=== PATIENT | male | born 1960 | race Caucasian/White ===

== ENCOUNTER 2017-08-15 02:04 | Emergency (ER) | payer OTHER ==
[~2017-08-15] VITALS: Ht 182.9 cm; Wt 72.6 kg
[~2017-08-15 02:04] MED LIST: APAP/CODEINE ELI5 M1 OR; ATIVAN1 MG PO; BACTRIM DS TAB1 EACH PO; BENADRYL25 MG PO; CALCIUM ACETAT667 M2 PO; CARVEDILOL12.5 MG PO; CLEOCIN HCL150 MG PO; COREG; COREG25 MG PO; DOXYCYCLINE 10100 MG PO; ERYTHROMYCIN E3.5 G1 OPHTHALMIC; FLEXERIL PO; FUROSEMIDE; FUROSEMIDE 80 M80 M1 PO; KEFLEX500 M1 PO; KEFLEX500 MG PO; LORTAB 5 MG/5001 TA1 PO; MEDROLDOSEPACK PO; MINOXIDIL2.5 MG PO; MUCINEX600 MG PO; NIACINAMIDE500 M1 PO; NORCO 5-325 TA1 EACH PO; NORFLEX100 MG PO; PERCOCET 5-3251 EACH PO; PHOSLO667 MG; RENA-VITE RX T1 EACH PO; RENAL SOFTGEL1 MG; RENAL SOFTGEL1 MG PO; SENSIPAR60 MG; SENSIPAR60 MG PO; ULTRAM 50MG TAB50 MG PO; VENTOLIN HFA 1818 GM INH; WELLBUTRIN SR150 MG PO; XANAX2 MG; ZOFRAN ODT4 MG PO; ZPAK PO; [UNRECOGNIZED DRUG - OTHER]
[2017-08-15] MEDS ORDERED: SENSIPAR 30 MG30 MG PO (02:27)
[2017-08-15] MEDS ORDERED: RENA-VITE RX T1 EACH PO (02:27)
[2017-08-15] MEDS ORDERED: CARVEDILOL3.125 MG PO (02:28)
[2017-08-15 03:00] LABS: BASOPHILS 0.9 % (0.0-2.0); EOSINOPHILS 2.3 % (0.0-3.0); HEMATOCRIT 44.3 % (42.0-52.0); HEMOGLOBIN 15.1 gm/dL (14.0-18.0); LYMPHOCYTES 10.8 % (24.0-44.0); MCH 32.2 pg (26.0-34.0); MCHC 34.2 g/dL (28.0-37.0); MCV 94.3 fL (80.0-100.0); MONOCYTES 11.9 % (1.0-8.0); PLATELET COUNT 274 thou/uL (150-400); POLYS 74.1 % (36.0-66.0); RBC 4.69 mil/uL (4.50-6.00); RDW 14.7 % (10.5-14.5); WBC 12.2 thou/uL (4.0-11.0)
[2017-08-15 03:01] LABS: MANUAL DIFF NO
[2017-08-15 03:08] LABS: CALCIUM 8.1 mg/dL (8.5-10.1); CREATININE 10.2 mg/dL (0.7-1.3); POTASSIUM 5.5 mmol/L (3.5-5.1)
[2017-08-15] MEDS ORDERED: CLEOCIN HCL150 MG PO (04:07)
[2017-08-15] MEDS ORDERED: ZOFRAN4 MG PO (04:07)
[2017-08-15 04:34] VITALS: BP 152/62
== END 2017-08-15 04:39 | disposition home or self-care (01) ==
LOC: ER 02:04
PROVIDERS: Emergency Medicine
DX: L03.211 Cellulitis of face (principal); R11.2 Nausea with vomiting, unspecified; I10 Essential (primary) hypertension; Q61.3 Polycystic kidney, unspecified; I50.9 Heart failure, unspecified; Z87.891 Personal history of nicotine dependence; Z90.49 Acquired absence of other specified parts of digestive tract; Z99.2 Dependence on renal dialysis

== ENCOUNTER 2017-12-05 20:24 | Emergency (ER) | payer OTHER ==
[~2017-12-05] VITALS: Ht 182.9 cm; Wt 72.6 kg
--- NOTE | ~2017-12-05 | EKG ---
[place] [address] [facility] [place] [address] ELECTROCARDIOGRAM REPORT Name: REYNOLD MATAMOROS Room #: REG [facility] [id number] Admission: 12/05/17 Attend Phys: Discharge: Date of : 60 Report #: [id number] THIS REPORT FOR: //name// [facility] ED Test Date: 2017-12-05 Test Time: 20:40:36 Pat Name: REYNOLD MATAMOROS Department: Room: Gender: Member Of Congress: MZOOK : 1960 Requested By: Zane Jha Order Number: [id number] MD: Daryl Ty Measurements Intervals [place] Rate: 77 P: UT: QRS: -46 QRSD: 102 T: 59 QT: 410 QTc: 465 Interpretive Statements Sinus rhythm Left anterior fascicular block Compared to ECG 04/18/2015 14:25:18 Electronically Signed On 12-05-2017 21:42:15 CDT by Daryl Ty [email or web address] <ELECTRONICALLY SIGNED> By: Daryl Ty MD 12/05/172141 39 2040 Daryl Ty MD /MARY ANN
[~2017-12-05 20:24] MED LIST changes: +CARVEDILOL3.125 MG PO; +SENSIPAR 30 MG30 MG PO; +ZOFRAN4 MG PO
[2017-12-05 20:56] LABS: HEMATOCRIT 47.5 % (42.0-52.0); HEMOGLOBIN 15.7 gm/dL (14.0-18.0); MCH 32.5 pg (26.0-34.0); MCHC 33.1 g/dL (28.0-37.0); MCV 98.3 fL (80.0-100.0); PLATELET COUNT 261 thou/uL (150-400); RBC 4.83 mil/uL (4.50-6.00); WBC 6.8 thou/uL (4.0-11.0)
[2017-12-05 21:04] LABS: ANION GAP 12 mmol/L (7-16); BUN 28 mg/dL (7-18); CALCIUM 9.1 mg/dL (8.5-10.1); CHLORIDE 99 mmol/L (98-107); CO2 27 mmol/L (21-32); CREATININE 9.7 mg/dL (0.7-1.3); GLUCOSE 135 mg/dL (74-106); POTASSIUM 3.9 mmol/L (3.5-5.1); SODIUM 138 mmol/L (136-145)
[2017-12-05] MEDS ORDERED: BINDER (21:04)
[2017-12-05] MEDS ORDERED: ATIVAN1 M1 PO (21:04)
[2017-12-05 21:13] LABS: TROPONIN-I < 0.04 ng/mL (<0.06)
[2017-12-05 21:24] LABS: ABSOLUTE NEUTROPHILS 4.6 thou/uL (1.4-8.2); ANISOCYTOSIS 1+
[2017-12-05] MEDS ORDERED: HYDROCODONE-AP1 EAC6 PO (21:56)
[2017-12-05 22:13] VITALS: BP 132/83
== END 2017-12-05 22:13 | disposition home or self-care (01) ==
LOC: ER 20:24
PROVIDERS: Physician Assistant
DX: M25.532 Pain in left wrist (principal); M54.12 Radiculopathy, cervical region; W19.XXXA Unspecified fall, initial encounter; Y93.89 Activity, other specified; Y92.89 Other specified places as the place of occurrence of the external cause; Y99.8 Other external cause status

== ENCOUNTER 2018-05-30 16:28 | Emergency (ER) | payer OTHER ==
[~2018-05-30] VITALS: Ht 182.9 cm; Wt 72.6 kg
[~2018-05-30 16:28] MED LIST changes: +ATIVAN1 M1 PO; +BINDER; +HYDROCODONE-AP1 EAC6 PO
[2018-05-30 16:32] VITALS: BP 117/78
== END 2018-05-30 17:10 | disposition home or self-care (01) ==
LOC: ER 16:28
DX: R05 Cough (principal); R09.81 Nasal congestion; I11.0 Hypertensive heart disease with heart failure; I50.9 Heart failure, unspecified; Z90.49 Acquired absence of other specified parts of digestive tract; Z87.891 Personal history of nicotine dependence

== ENCOUNTER 2018-12-11 15:50 | Emergency (ER) | payer OTHER ==
[~2018-12-11] VITALS: Ht 182.9 cm; Wt 72.6 kg
[2018-12-11] MEDS ORDERED: ATIVAN1 MG PO (16:04)
[2018-12-11] MEDS ORDERED: NORCO 5-325 TA1 EACH PO (18:06)
[2018-12-11 18:12] VITALS: BP 128/87
== END 2018-12-11 18:14 | disposition home or self-care (01) ==
LOC: ER 15:50
DX: S92.145A Nondisplaced dome fracture of left talus, initial encounter for closed fracture (principal); I50.9 Heart failure, unspecified; I11.0 Hypertensive heart disease with heart failure; Z90.49 Acquired absence of other specified parts of digestive tract; Z87.891 Personal history of nicotine dependence; W18.39XA Other fall on same level, initial encounter; Y92.89 Other specified places as the place of occurrence of the external cause; Y93.89 Activity, other specified; Y99.8 Other external cause status

== ENCOUNTER → 2019-01-02 | Outpatient (CLI) | payer OTHER | LOC: MRI 12:32 | DX: M62.572 Muscle wasting and atrophy, not elsewhere classified, left ankle and foot (principal) ==

== ENCOUNTER → 2020-10-23 | Outpatient (CLI) | payer OTHER | LOC: SJCVC 11:25 | PROVIDERS: ATTEND Internal Medicine | DX: I48.0 Paroxysmal atrial fibrillation (principal); I48.19 Other persistent atrial fibrillation; I12.9 Hypertensive chronic kidney disease with stage 1 through stage 4 chronic kidney disease, or unspecified chronic kidney disease; N18.9 Chronic kidney disease, unspecified; I34.0 Nonrheumatic mitral (valve) insufficiency; I42.9 Cardiomyopathy, unspecified; F17.210 Nicotine dependence, cigarettes, uncomplicated; Z79.899 Other long term (current) drug therapy ==

== ENCOUNTER → 2021-01-21 | Outpatient (CLI) | payer OTHER | LOC: SJCVCIMAG 07:49 | PROVIDERS: ATTEND Internal Medicine | DX: R06.00 Dyspnea, unspecified (principal); R53.83 Other fatigue; I10 Essential (primary) hypertension; I48.91 Unspecified atrial fibrillation; I25.5 Ischemic cardiomyopathy; Z99.2 Dependence on renal dialysis; Z87.891 Personal history of nicotine dependence; Z79.899 Other long term (current) drug therapy ==

== ENCOUNTER → 2021-01-25 | Outpatient (CLI) | payer OTHER | LOC: SJCVC 10:30 | PROVIDERS: ATTEND Internal Medicine | DX: I42.0 Dilated cardiomyopathy (principal); I12.0 Hypertensive chronic kidney disease with stage 5 chronic kidney disease or end stage renal disease; N18.6 End stage renal disease; E78.5 Hyperlipidemia, unspecified; E21.3 Hyperparathyroidism, unspecified; F41.9 Anxiety disorder, unspecified; D64.9 Anemia, unspecified; I95.9 Hypotension, unspecified; K40.90 Unilateral inguinal hernia, without obstruction or gangrene, not specified as recurrent; K42.9 Umbilical hernia without obstruction or gangrene; R94.31 Abnormal electrocardiogram [ECG] [EKG]; I34.0 Nonrheumatic mitral (valve) insufficiency; F12.90 Cannabis use, unspecified, uncomplicated; Q61.3 Polycystic kidney, unspecified; Z99.2 Dependence on renal dialysis; Z79.899 Other long term (current) drug therapy; Z87.891 Personal history of nicotine dependence ==

== ENCOUNTER → 2021-02-23 | Outpatient (CLI) | payer OTHER ==
[~2021-02-23] VITALS: Ht 182.9 cm; Wt 74.8 kg
[~2021-02-23] MED LIST changes: +AMIODARONE HCL400 MG PO
[2021-02-23 07:07] VITALS: BP 136/84
[2021-02-23 07:30] LABS: HEMATOCRIT 43.5 % (42.0-52.0); HEMOGLOBIN 14.2 gm/dL (14.0-18.0); MCH 32.8 pg (26.0-34.0); MCHC 32.8 g/dL (28.0-37.0); MCV 100.2 fL (80.0-100.0); RBC 4.34 mil/uL (4.50-6.00); RDW 18.7 % (10.5-14.5)
[2021-02-23 08:03] LABS: CALCIUM 9.1 mg/dL (8.5-10.1); CREATININE 6.4 mg/dL (0.7-1.3); POTASSIUM 4.3 mmol/L (3.5-5.1)
--- NOTE | 2021-02-23 08:57 | EKG ---
[place] [address] [facility] [place] [address] ELECTROCARDIOGRAM REPORT Name: REYNOLD MATAMOROSO [facility]: [facility] [id number] Admission: 02/23/21 Attend Phys: Gary Kimbrough MD, Discharge: Date of : 60 Report #: [id number] [facility] Test Date: 2021-02-23 Test Time: 07:22:19 Pat Name: REYNOLD MATAMOROS Department: Room: Gender: M Human Resources Trainee: SBULDYLON : 1960 Requested By: Dar Tomas Order Number: [id number] : Gary Kimbrough Measurements Intervals [place] Rate: 75 P: 53 [place]: 187 QRS: -67 QRSD: 131 T: 84 QT: 487 QTc: 544 Interpretive Statements Sinus rhythm Probable left atrial enlargement IVCD, consider atypical RBBB Left ventricular hypertrophy Anterior infarct, old Nonspecific T abnormalities, lateral leads Minimal ST elevation, lateral leads Compared to ECG 12/05/2017 20:40:36 Left ventricular hypertrophy now present Myocardial infarct finding now present T-wave abnormality now present Electronically Signed On 02-23-2021 8:57:35 CDT by Gary Kimbrough [email or web address] <ELECTRONICALLY SIGNED> By: Gary Kimbrough MD, [facility] 02/23/21 0857 1 1 Gary Kimbrough MD, [facility] /EPI
--- NOTE | 2021-02-25 17:04 | CATHLAB ---
[facility] [place] [address] INVASIVE PROCEDURE REPORT Name: REYNOLD MATAMOROS Room #: REG DYAN Morrow.#: [id number] Admission: 02/23/21 Attend Phys: Gary Kimbrough MD, Discharge: Date of : 60 Report #: [id number] THIS REPORT FOR: cc: Dar Paz MD, Gerald M. MD Mancuso, Gerald M. MD [facility] ~ APPROVED REPORT Study performed: 02/23/2021 07:43:05 Patient Details Patient Status: Out-Patient Room #: The patient is a 60 year-old male Event Personnel Dar Tomas Transplant Rn, Delbert Bermudez RTR Scrub, Sirena Nunez RTR Scrub, Rebel Domingo RTR Monitor, Aleah Ortega RN hand i cutter Performed Art Access - R femoral artery* Madi Access - R femoral vein Right and Left Heart Cath w/or w/o Coronarie 2564005 [facility] Abdominal Aortography 331939 Hemostasis w/ Mynx 31135 Initial Mod Sed Same Phys/QHP Gr5y 766880 33608 Mod Sed Same Phys/QHP Ea 560452 Indication Chest pain Procedure Narrative The Right Groin^ was infiltrated with 1% Lidocaine subcutaneous anesthesia. A Right Heart Catheterization was performed with a 7 Fr. [place]i catheter and pressure were recorded. Cardiac outputs were obtained by the Thermal Dilution method. A PINNACLE 6FR Sheath #[id number] sheath was inserted into the RFA^. Coronary angiography was performed using coronary diagnostic catheters. The right coronary system was accessed and visualized with a JR4 catheter. The left coronary system was accessed and visualized with a JL4 catheter. The left ventricle was accessed and visualized with a PIGTAIL catheter. An aortogram of the abdominal aorta was performed. Closure device was deployed with a Fr MYNXGRIP 6/7F #[id number]. The patient tolerated the procedure well and there were no complications associated with the procedure. There was no hematoma. [address] [address] INVASIVE PROCEDURE REPORT Name: REYNOLD MATAMOROSO Room #: REG [facility]#: [id number] Admission: 02/23/21 Attend Phys: Gary Kimbrough, Discharge: Date of : 60 Report #: [id number] Intraoperative Conscious Sedation Sedation start time: 8:37 Case end Time: 9:25 Fentanyl 50 mcg Versed 1 mg Fluoro Time: 3.00 minutes Dose: DAP 4840.70 cGycm2 529 mGy Contrast Type and Amount: Omnipaque 45 ml Hemodynamics The right atrial mean pressure is 24 mmHg. The right ventricular pressure is 54/11 mmHg. The pulmonary artery pressure is 53/12 mmHg with a mean of 32 mmHg. The mean pulmonary capillary wedge pressure is 28 mmHg. The aortic pressure is 142/90 mmHg with a mean of 111 mmHg. The left ventricular pressure is 144/19 mmHg with a mean of mmHg. The left ventricular end diastolic pressure is 31 mmHg. The cardiac output using thermo method is 4.10 L/min. The cardiac index using thermo method is 2.09 L/min/m2. Conclusion #1 Successful right heart catheterization with cardiac output by thermodilution. See above hemodynamics. #2 mildly dilated left ventricle with moderately severe global hypokinesis EF 20% range. #3 mild three-vessel coronary disease and a left dominant system. Proximal calcification is mild. No occlusive disease. #4 abdominal aortogram is intact no evidence of aneurysm brisk distal flow. Recommendations and plan: Continue aggressive risk factor modification. This is a mildly dilated idiopathic cardiomyopathy. This is nonischemic. Follow-up will be arranged. <ELECTRONICALLY SIGNED> By: Dar Tomas MD, FACC 02/25/21 1704 1704 170 Dar Tomas MD, FACC /INF
== END | disposition home or self-care (01) ==
LOC: CATH 02-09 07:24
PROVIDERS: Internal Medicine Cardiovascular Disease; ATTEND Internal Medicine
DX: I25.10 Atherosclerotic heart disease of native coronary artery without angina pectoris (principal); I11.0 Hypertensive heart disease with heart failure; I50.9 Heart failure, unspecified; E78.5 Hyperlipidemia, unspecified; I48.91 Unspecified atrial fibrillation; Z90.49 Acquired absence of other specified parts of digestive tract; Z98.890 Other specified postprocedural states; Z79.899 Other long term (current) drug therapy

== ENCOUNTER 2021-03-22 19:40 | Emergency (ER) | payer OTHER ==
[~2021-03-22] VITALS: Ht 182.9 cm; Wt 72.6 kg
[2021-03-22] MEDS ORDERED: AMIODARONE HCL400 MG PO (19:59)
[2021-03-22] MEDS ORDERED: ALBUTEROL2.5 MG/31 INH (19:59)
[2021-03-22] MEDS ORDERED: CARVEDILOL12.5 MG PO (20:00)
[2021-03-22] MEDS ORDERED: HECTOROL4 MCG/2 ML IV PUSH (20:01)
[2021-03-22] MEDS ORDERED: CINACALCET HCL30 MG PO (20:01)
[2021-03-22] MEDS ORDERED: SUPER THERAVIT1 EACH PO (20:01)
[2021-03-22] MEDS ORDERED: EFFIENT5 MG PO (20:02)
[2021-03-22] MEDS ORDERED: RENVELA0.8 GM PO (20:02)
[2021-03-22] MEDS ORDERED: DOXYCYCLINE 10100 MG PO (20:43)
[2021-03-22 20:53] VITALS: BP 114/67
== END 2021-03-22 21:06 | disposition home or self-care (01) ==
LOC: ER 19:40
DX: S10.0XXA Contusion of throat, initial encounter (principal); L08.9 Local infection of the skin and subcutaneous tissue, unspecified; I11.0 Hypertensive heart disease with heart failure; I50.9 Heart failure, unspecified; I10 Essential (primary) hypertension; Z99.2 Dependence on renal dialysis; Z90.49 Acquired absence of other specified parts of digestive tract; Z79.51 Long term (current) use of inhaled steroids; Z79.899 Other long term (current) drug therapy; Z87.891 Personal history of nicotine dependence; V86.96XA Unspecified occupant of dirt bike or motor/cross bike injured in nontraffic accident, initial encounter; Y93.89 Activity, other specified; Y92.89 Other specified places as the place of occurrence of the external cause; Y99.8 Other external cause status

== ENCOUNTER 2021-06-18 14:59 | Emergency (ER) | payer OTHER ==
[~2021-06-18] VITALS: Ht 182.9 cm; Wt 70.3 kg
[~2021-06-18 14:59] MED LIST changes: +ALBUTEROL2.5 MG/31 INH; +CINACALCET HCL30 MG PO; +EFFIENT5 MG PO; +HECTOROL4 MCG/2 ML IV PUSH; +RENVELA0.8 GM PO; +SUPER THERAVIT1 EACH PO
[2021-06-18 15:04] VITALS: BP 149/88
== END 2021-06-18 16:44 | disposition home or self-care (01) ==
LOC: ER 14:59
DX: M79.651 Pain in right thigh (principal); I11.0 Hypertensive heart disease with heart failure; I50.9 Heart failure, unspecified; Q61.3 Polycystic kidney, unspecified; I48.91 Unspecified atrial fibrillation; Z90.49 Acquired absence of other specified parts of digestive tract; Z79.51 Long term (current) use of inhaled steroids; Z79.891 Long term (current) use of opiate analgesic; Z79.899 Other long term (current) drug therapy; Z87.891 Personal history of nicotine dependence

== ENCOUNTER → 2021-07-12 | Outpatient (CLI) | payer OTHER | LOC: SJCVC 10:24 | PROVIDERS: ATTEND Internal Medicine | DX: I12.0 Hypertensive chronic kidney disease with stage 5 chronic kidney disease or end stage renal disease (principal); N18.6 End stage renal disease; I42.9 Cardiomyopathy, unspecified; E78.5 Hyperlipidemia, unspecified; E21.3 Hyperparathyroidism, unspecified; F12.980 Cannabis use, unspecified with anxiety disorder; Z79.899 Other long term (current) drug therapy; Z72.89 Other problems related to lifestyle; Z87.891 Personal history of nicotine dependence ==

== ENCOUNTER 2021-07-30 10:44 | Emergency (ER) | payer OTHER ==
[~2021-07-30] VITALS: Ht 182.9 cm; Wt 68.0 kg
[2021-07-30 10:55] VITALS: BP 126/70
== END 2021-07-30 11:35 | disposition left against medical advice (07) ==
LOC: ER 10:44
DX: R10.31 Right lower quadrant pain (principal); I48.91 Unspecified atrial fibrillation; I13.2 Hypertensive heart and chronic kidney disease with heart failure and with stage 5 chronic kidney disease, or end stage renal disease; N18.6 End stage renal disease; I50.9 Heart failure, unspecified; Z53.21 Procedure and treatment not carried out due to patient leaving prior to being seen by health care provider; Z99.2 Dependence on renal dialysis

== ENCOUNTER 2021-07-30 13:10 | Emergency (ER) | payer OTHER ==
[2021-07-30 13:11] VITALS: BP 129/60
== END 2021-07-30 15:22 | disposition left against medical advice (07) ==
LOC: ER 13:10
DX: R10.30 Lower abdominal pain, unspecified (principal); I48.91 Unspecified atrial fibrillation; I13.2 Hypertensive heart and chronic kidney disease with heart failure and with stage 5 chronic kidney disease, or end stage renal disease; N18.6 End stage renal disease; I50.9 Heart failure, unspecified; Z53.21 Procedure and treatment not carried out due to patient leaving prior to being seen by health care provider; Z99.2 Dependence on renal dialysis; Z90.49 Acquired absence of other specified parts of digestive tract

== ENCOUNTER 2021-09-28 21:36 | Inpatient (IN) | payer OTHER ==
[~2021-09-28] VITALS: Ht 182.9 cm; Wt 62.3 kg
--- NOTE | ~2021-09-28 | EMS ---
[address] [address] EMS Patient Care Report Name: REYNOLD MATAMOROS Room #: PRE M.R.#: [id number] Admission: Attend Phys: Discharge: Date of : 60 Report #: [id number] THIS REPORT FOR: //name// Report Transmitted: 09/28/2021 21:37 EMS Care Summary [place], [place]/[facility] Incident [id number] @ 09/28/2021 20:47 Incident Location [address] [place] [address] Patient REYNOLD MATAMOROS Male, 61 Years 1960 Patient Address [address] [place] [address] Patient History Cardiac Arrythmia,Hypertension (HTN),Kidney/Renal Failure,Cardiac Condition - Other,Dialysis,Chronic Kidney Disease, Patient Allergies No known allergies, Patient Medications Lisinopril, Renvela, Prasugrel, Prednisone, Chief Complaint DIARRHEA Disposition Transported No Lights/[place] Dispatch Reason Sick Person Transported To [facility] Narrative UPON ARRIVAL PT SITING UPRIGHT ON TOILET CONSCIOUS AND ALERT. PT HAS BEEN HAVING DIARRHEA FOR A WEEK NOW WITH INCREASED WEAKNESS. PT ALSO HAS SOME BLOOD IN THE STOOL BUT JUST BRIGHT RED BLOOD ON PAPER, MOST LIKELY FROM HEMMOROID. PT [address] [address] EMS Patient Care Report Name: REYNOLD MATAMOROS Room #: PRE [place]#: [id number] Admission: Attend Phys: Discharge: Date of : 60 Report #: [id number] WAS GIVEN MEDS A COUPLE DAYS AGO FOR ABD PAIN AND DIARRHEA BUT HASN'T TAKEN ANY BECAUSE THEY DIDN'T SEEM APROPRIATE TO HIM. PT ASSISTED TO PATIO STEPS, PT STATES HE CAN'T WALK DOWN THE STEPS DUE TO WEAKNESS. PT CARRIED DOWN STEPS TO COT. PT TRANSPORTED TO [facility]. DURING TRANSPORT PT ASKS FOR O2 BECAUSE HIS BREATHING HAS BEEN HEAVY. WE ADVISE PT HIS SPO2 IS NORMAL ON ROOM AIR. PT ASKS AGAIN AND IS GIVEN O2. Initial Vitals @21:21P: 91,CO: 4,SpO2: 71, @21:28P: 152,CO: 1,SpO2: 96, @21:29P: 91,R: 20,BP: 102/68,GCS: 15,CO: 2,SpO2: 96,Revised Trauma: 12, @21:15P: 96,R: 20,BP: 130/74,Pain: 8/10,GCS: 15,SpO2: 92,Revised Trauma: 12, Assessments @21:02MENTAL:Time Oriented,Event Oriented,Place Oriented,Person Oriented,SKIN:Pale,HEENT:Head/Face: No Abnormalities,LUNG SOUNDS:Left Lower: Tenderness,Right Upper: Tenderness,Right Lower: Tenderness,General: Diarrhea,General: Nausea,Left Upper: No Abnormalities,ABDOMEN:Left Lower: Tenderness,Right Upper: Tenderness,Right Lower: Tenderness,General: Diarrhea,General: Nausea,Left Upper: No Abnormalities,PELVIS//GI:EXTREMITIES:Left Arm: No Abnormalities,Right Arm: No Abnormalities,Left Leg: No Abnormalities,Right Leg: No Abnormalities,PULSE:Radial: 2+ Normal,NEURO:No Abnormalities, Impression Diarrhea Procedures @21:02 ALS Assessment Response: UnchangedSucceeded @21:15 3-Lead ECG Response: UnchangedSucceeded @21:20 Oxygen FlowRate: 2 Device: Nasal Cannula (NC) Response: UnchangedSucceeded Timeline 20:44,Call Received 20:44,Dispatch Notified 20:47,Dispatched 20:48,En Route 20:58,On Scene 21:00,At Patient 21:02,ALS Assessment,Response: UnchangedSucceeded, 21:15,3-Lead ECG,Response: UnchangedSucceeded, 21:15,BP: 130/74 M,PULSE: 96,RR: 20 R,SPO2: 92 Ox,ETCO2: ,BG: ,PAIN: 8,GCS: 15, 21:17,Depart Scene 21:20,Oxygen FlowRate: 2 Device: Nasal Cannula (NC) Response: [facility] [address] [place] [address] EMS Patient Care Report Name: REYNOLD MATAMOROS Room #: PRE M.R.#: [id number] Admission: Attend Phys: Discharge: Date of : 60 Report #: [id number] UnchangedSucceeded, 21:21,BP: / M,PULSE: 91,RR: R,SPO2: 71 Ox,ETCO2: ,BG: ,PAIN: ,GCS: , 21:28,BP: / M,PULSE: 152,RR: R,SPO2: 96 Ox,ETCO2: ,BG: ,PAIN: ,GCS: , 21:29,BP: 102/68 M,PULSE: 91,RR: 20 R,SPO2: 96 Ox,ETCO2: ,BG: ,PAIN: ,GCS: 15, 21:36,At Destination 21:51,Call Closed Disclaimer v1.1 Copyright 2021 [employer] This EMS Care Summary contains data elements from the applicable legal record (which may be displayed differently). It is designed to provide pertinent information for the following purposes: continuity of care, clinical quality, and state data reporting. The complete legal record is available to ED staff and administrators of the receiving hospital in [employer]'s Patient Tracker. All data is provided "as is."
--- NOTE | ~2021-09-28 | EMS ---
[address] [address] EMS Patient Care Report Name: REYNOLD MATAMOROS Room #: 170-7 ADM IN M.R.#: [id number] Admission: 09/29/21 Attend Phys: Nilesh Ojeda Discharge: Date of : 60 Report #: [id number] THIS REPORT FOR: //name// Report Transmitted: 09/29/2021 06:15 EMS Care Summary [place], [place]/[facility] Incident [id number] @ 09/28/2021 20:47 Incident Location [address] [place] [address] Patient REYNOLD MATAMOROS Male, 61 Years 1960 Patient Address [address] [place] [address] Patient History Cardiac Arrythmia,Hypertension (HTN),Kidney/Renal Failure,Cardiac Condition - Other,Dialysis,Chronic Kidney Disease, Patient Allergies No known allergies, Patient Medications Lisinopril, Renvela, Prasugrel, Prednisone, Chief Complaint DIARRHEA Disposition Transported No Lights/[place] Dispatch Reason Sick Person Transported To [facility] Narrative UPON ARRIVAL PT SITING UPRIGHT ON TOILET CONSCIOUS AND ALERT. PT HAS BEEN HAVING DIARRHEA FOR A WEEK NOW WITH INCREASED WEAKNESS. PT ALSO HAS SOME BLOOD IN THE STOOL BUT JUST BRIGHT RED BLOOD ON PAPER, MOST LIKELY FROM HEMMOROID. PT [address] [address] EMS Patient Care Report Name: REYNOLD MATAMOROS Room #: 170-7 ADM IN M.R.#: [id number] Admission: 09/29/21 Attend Phys: Nilesh Ojeda Discharge: Date of : 60 Report #: [id number] WAS GIVEN MEDS A COUPLE DAYS AGO FOR ABD PAIN AND DIARRHEA BUT HASN'T TAKEN ANY BECAUSE THEY DIDN'T SEEM APROPRIATE TO HIM. PT ASSISTED TO PATIO STEPS, PT STATES HE CAN'T WALK DOWN THE STEPS DUE TO WEAKNESS. PT CARRIED DOWN STEPS TO COT. PT TRANSPORTED TO [facility]. DURING TRANSPORT PT ASKS FOR O2 BECAUSE HIS BREATHING HAS BEEN HEAVY. WE ADVISE PT HIS SPO2 IS NORMAL ON ROOM AIR. PT ASKS AGAIN AND IS GIVEN O2. Initial Vitals @21:21P: 91,CO: 4,SpO2: 71, @21:28P: 152,CO: 1,SpO2: 96, @21:29P: 91,R: 20,BP: 102/68,GCS: 15,CO: 2,SpO2: 96,Revised Trauma: 12, @21:15P: 96,R: 20,BP: 130/74,Pain: 8/10,GCS: 15,SpO2: 92,Revised Trauma: 12, Assessments @21:02MENTAL:Person Oriented,Place Oriented,Event Oriented,Time Oriented,SKIN:Pale,HEENT:Head/Face: No Abnormalities,LUNG SOUNDS:General: Nausea,Left Lower: Tenderness,Right Upper: Tenderness,Right Lower: Tenderness,General: Diarrhea,Left Upper: No Abnormalities,ABDOMEN:General: Nausea,Left Lower: Tenderness,Right Upper: Tenderness,Right Lower: Tenderness,General: Diarrhea,Left Upper: No Abnormalities,PELVIS//GI:EXTREMITIES:Left Arm: No Abnormalities,Right Arm: No Abnormalities,Left Leg: No Abnormalities,Right Leg: No Abnormalities,PULSE:Radial: 2+ Normal,NEURO:No Abnormalities, Impression Diarrhea Procedures @21:02 ALS Assessment Response: UnchangedSucceeded @21:15 3-Lead ECG Response: UnchangedSucceeded @21:20 Oxygen FlowRate: 2 Device: Nasal Cannula (NC) Response: UnchangedSucceeded Timeline 20:44,Call Received 20:44,Dispatch Notified 20:47,Dispatched 20:48,En Route 20:58,On Scene 21:00,At Patient 21:02,ALS Assessment,Response: UnchangedSucceeded, 21:15,3-Lead ECG,Response: UnchangedSucceeded, 21:15,BP: 130/74 M,PULSE: 96,RR: 20 R,SPO2: 92 Ox,ETCO2: ,BG: ,PAIN: 8,GCS: 15, 21:17,Depart Scene 21:20,Oxygen FlowRate: 2 Device: Nasal Cannula (NC) Response: [facility] [address] [place] [address] EMS Patient Care Report Name: REYNOLD MATAMOROS Room #: 170-7 ADM IN M.R.#: [id number] Admission: 09/29/21 Attend Phys: Nilesh Ojeda Discharge: Date of : 60 Report #: [id number] UnchangedSucceeded, 21:21,BP: / M,PULSE: 91,RR: R,SPO2: 71 Ox,ETCO2: ,BG: ,PAIN: ,GCS: , 21:28,BP: / M,PULSE: 152,RR: R,SPO2: 96 Ox,ETCO2: ,BG: ,PAIN: ,GCS: , 21:29,BP: 102/68 M,PULSE: 91,RR: 20 R,SPO2: 96 Ox,ETCO2: ,BG: ,PAIN: ,GCS: 15, 21:36,At Destination 21:51,Call Closed Disclaimer v1.1 Copyright 2021 [employer] This EMS Care Summary contains data elements from the applicable legal record (which may be displayed differently). It is designed to provide pertinent information for the following purposes: continuity of care, clinical quality, and state data reporting. The complete legal record is available to ED staff and administrators of the receiving hospital in [employer] Patient Tracker. All data is provided "as is."
[2021-09-28 21:47] VITALS: BP 102/62
[2021-09-28 22:26] LABS: MCH 30.7 pg (26.0-34.0); PLATELET COUNT 218 thou/uL (150-400)
[2021-09-28 22:28] LABS: EOSINOPHILS 0.2 % (0.0-3.0); HEMATOCRIT 43.3 % (42.0-52.0); HEMOGLOBIN 14.2 gm/dL (14.0-18.0); LYMPHOCYTES 2.7 % (24.0-44.0); MCHC 32.9 g/dL (28.0-37.0); MCV 93.2 fL (80.0-100.0); MONOCYTES 7.1 % (1.0-8.0); RBC 4.64 mil/uL (4.50-6.00); RDW 18.5 % (10.5-14.5); WBC 14.6 thou/uL (4.0-11.0)
[2021-09-28 22:33] LABS: ANION GAP 12 mmol/L (7-16); BUN 55 mg/dL (7-18); CALCIUM 8.7 mg/dL (8.5-10.1); CHLORIDE 97 mmol/L (98-107); CO2 27 mmol/L (21-32); CREATININE 5.9 mg/dL (0.7-1.3); GLUCOSE 61 mg/dL (74-106); POTASSIUM 4.9 mmol/L (3.5-5.1); SODIUM 136 mmol/L (136-145)
[2021-09-28 22:45] LABS: ALBUMIN 2.5 g/dL (3.4-5.0); LIPASE < 10 U/L (73-393); SGOT 15 U/L (15-37); SGPT 22 U/L (16-63); TOTAL BILIRUBIN 1.3 mg/dL (0.2-1.0)
[2021-09-29 04:00] VITALS: BP 100/59
[2021-09-29 05:33] LABS: HEMATOCRIT 38.4 % (42.0-52.0); HEMOGLOBIN 12.6 gm/dL (14.0-18.0); MCH 30.4 pg (26.0-34.0); MCHC 32.9 g/dL (28.0-37.0); MCV 92.4 fL (80.0-100.0); RBC 4.15 mil/uL (4.50-6.00); RDW 18.8 % (10.5-14.5); WBC 12.7 thou/uL (4.0-11.0)
[2021-09-29 05:44] LABS: CALCIUM 7.7 mg/dL (8.5-10.1); CREATININE 6.1 mg/dL (0.7-1.3); POTASSIUM 5.6 mmol/L (3.5-5.1)
--- NOTE | 2021-09-29 08:01 | EKG ---
[place] [address] [facility] [place] [address] ELECTROCARDIOGRAM REPORT Name: REYNOLD MATAMOROS Room #: 170-7 ADM IN M.R.#: [id number] Admission: 09/29/21 Attend Phys: Nilesh Ojeda Discharge: Date of : 60 Report #: [id number] [facility] ED Test Date: 2021-09-28 Test Time: 22:10:52 Pat Name: REYNOLD MATAMOROS Department: Room: 170 7 Gender: M Casino Controller: ADA : 1960 Requested By: Nilesh Ojeda Order Number: [id number] MD: Curtis Lange Measurements Intervals [place] Rate: 93 P: -11 [place]: 175 QRS: -70 QRSD: 117 T: 97 QT: 405 QTc: 504 Interpretive Statements Sinus rhythm Incomplete right bundle branch block Left anterior hemiblock Probable anterior infarct, age indeterminate LVH with repolarization abnormality Compared to ECG 02/23/2021 07:22:19 Incomplete right bundle-branch block now present Repolarization abnormality is more pronounced Electronically Signed On 09-29-2021 8:01:30 TEST ENGINEERING TECHNICIAN by Curtis Lange [email or web address] <ELECTRONICALLY SIGNED> By: Curtis Lange MD, [facility] 09/29/2101 221 09 Curtis Lange MD, [facility] /EPI
[2021-09-29 08:08] VITALS: BP 95/64
--- NOTE | 2021-09-29 08:18 | NUR ---
END OF SHIFT SUMMARY: PT REMAINED STABLE THROUGHOUT THE NIGHT WITH FEW COMPLAINTS OTHER THAN PAIN. PAIN MEDICATION WAS GIVEN ORDERED AND PT WAS ABLE TO SLEEP AND WAS SLEEPING ON ALL REASSESSMENTS OF PAIN. VITAL SIGNS REMAINED STABLE. PT WAS ASSISTED TO THE BED SIDE COMMODE WHERE HE PRESENTED VERY WEAK. PT ONLY REQUIRED ONE PERSON MINIMAL ASSISTANCE. PT DID HAVE DIARRHEA DURING THAT TIME, AND THAT WAS SENT TO LAB FOR C.DIFF RULE OUT. ALL ABX WERE GIVEN PRESCRIBED AND PT WAS NOTIFIED OF NPO STATUS UNTIL PROVIDER SAW PT. PT STATED UNDERSTANDING. PT ALSO EDUCATED ON PAIN MEDICATION TIMING BEING Q4HR. PT AGAIN STATED UNDERSTANDING. CALL LIGHT REMAINED IN REACH AT ALL TIMES AND PT WAS EDUCATED ON USE OF LIGHT EVERY TIME SOMEONE LEFT THE ROOM. PT WAS ABLE TO VOICE UNDERSTANDING.
[2021-09-29 15:26] VITALS: BP 95/64
[2021-09-29 20:09] VITALS: BP 97/41
--- NOTE | 2021-09-29 22:03 | NUR ---
WALKED IN TO GIVE PT MEDICATION, PT WAS SITTING ON THE SIDE OF THE BED WITH EVERYTHING RIPPED OFF. ASKED PT WHAT HE WAS DOING WHEN HE STATED, "I AM GETTING UP TO GET A CUP OF ICE." PT WAS ASKED WHY HE DID NOT PUSH HIS CALL LIGHT. HE STATED THAT CALL LIGHT DID NOT WORK, IT WAS AT THIS TIME THAT IT WAS NOTICED THAT PT HAD PULLED BIOMEDICAL PHOTOGRAPHER LIGHT SO HARD THAT IT HAD COME OUT OF THE WALL. PT STATED "YOU GUYS ARE JUST FUCKING WITH ME." PT REQUESTED A CUP OF ICE. THIS WAS PROVIDED TO PT. PAIN MEDICATION AND NAUSEA MEDS WERE ALSO ADMINISTERED. CALL LIGHT WAS PLUGGED BACK IN AND PLACED IN REACH. PT WAS THEN EDUCATED ON THE USE OF THE CALL LIGHT AND NOT PULLING ON THE CORD.
--- NOTE | 2021-09-29 22:22 | NUR ---
PT BRIEF CHANGED, PT REPOSTIONED IN BED, CALL LIGHT IN REACH, LIGHTS TURNED OFF PER PT REQUEST. PT DENIES ANY FURTHER NEEDS OR WANTS AT THIS TIME.
[2021-09-30] VITALS (34 sets, daily range): BP systolic 66–161; BP diastolic 37–123
[2021-09-30 06:08] LABS: HEMATOCRIT 47.6 % (42.0-52.0); MCH 29.9 pg (26.0-34.0); MCHC 31.7 g/dL (28.0-37.0); MCV 94.5 fL (80.0-100.0); RBC 5.04 mil/uL (4.50-6.00); RDW 19.2 % (10.5-14.5); WBC 22.4 thou/uL (4.0-11.0)
[2021-09-30 06:15] LABS: HEMOGLOBIN 15.1 gm/dL (14.0-18.0)
[2021-09-30 06:18] LABS: ALBUMIN 1.7 g/dL (3.4-5.0); CALCIUM 8.6 mg/dL (8.5-10.1); MAGNESIUM 2.1 mg/dL (1.8-2.4); PHOSPHORUS 6.4 mg/dL (2.6-4.7); POTASSIUM 5.6 mmol/L (3.5-5.1)
--- NOTE | 2021-09-30 07:05 | NUR ---
PT WAS NOTED TO HAVE A CRITIAL GLUCOSE OF 28. ANOTHER RN, MARY, ADMINISTERED MEDICATIONS. AFTER 20 MINUTES BLOOD SUGAR WAS RECHEKED AND SUGAR CORRECTED TO 105.
--- NOTE | 2021-09-30 15:46 | NUR ---
PAGED DR. SPARROW TWICE IN REGARDS TO PATIENTS' BP. STILL WAITING FOR RETURN CALL AT THIS TIME.
--- NOTE | 2021-09-30 18:36 | NUR ---
A RIGHT IJ CENTRAL LINE WAS PLACED PER HOSPITAL POLICY AFTER A BEDSIDE TIMEOUT WAS COMPLETED. THE 25CM LINE WAS ADVANCED TO 7CM EXTERNAL. A STAT CHEST XRAY WAS ORDERED FOR CONFIRMATION
--- NOTE | 2021-09-30 18:57 | NUR ---
PT ARRIVED TO ICU AT 1715 FOR HYPOTENSION. PT WAS QUICKLY STARTED ON LEVO FOR SUPPORT. PT RESPONDED WELL TO MEDICATION. RN WILL CONTINUE TO MONITOR
[2021-10-01] VITALS (48 sets, daily range): BP systolic 80–143; BP diastolic 41–108
[2021-10-01 00:05] LABS: BE(vivo) -7.7 mmol/L (-2 to +3); HCO3 18.5 mmol/L (22.0-26.0); PCO2 40.2 mmHg (35.0-45.0); PO2 82.3 mmHg (80.0-100.0); sO2 94.9 % (92.0-98.0)
[2021-10-01 00:06] LABS: pH 7.281 (7.360-7.450)
[2021-10-01 06:17] LABS: HEMATOCRIT 55.2 % (42.0-52.0); MCHC 31.3 g/dL (28.0-37.0); MCV 95.8 fL (80.0-100.0); RBC 5.76 mil/uL (4.50-6.00); RDW 19.6 % (10.5-14.5); WBC 29.9 thou/uL (4.0-11.0)
[2021-10-01 06:18] LABS: HEMOGLOBIN 17.3 gm/dL (14.0-18.0)
[2021-10-01 06:25] LABS: ALBUMIN 1.4 g/dL (3.4-5.0); CALCIUM 8.1 mg/dL (8.5-10.1); CREATININE 5.8 mg/dL (0.7-1.3); PHOSPHORUS 8.4 mg/dL (2.5-4.9)
[2021-10-01 06:31] LABS: POTASSIUM 6.4 mmol/L (3.5-5.1)
--- NOTE | 2021-10-01 09:00 | NUR ---
pt continues to c/o abd pain and keeps asking to be sat up. pt had critical Ph and potassium during shift. results were reported as charted. during change of shift the provider ordered stat abd CT for distended abd
--- NOTE | 2021-10-01 10:30 | NUR ---
Discussed during los with the attending physician. positive for c-diff, requiring o2 per nasal cannula and currently on NRB mask 15.0L. Levophed for pressure, b/p 90/51. Abnormal lab, BUN, Creat, and Potassium. Possible will be going for a procedure today. Cm called renea valera sig other. Unable to leave a message related the mailbox is full.
--- NOTE | 2021-10-01 11:48 | NUR ---
AT 0730, PATIENT WAS COMPLAINING ABOUT SEVERE AB PAIN, SOB, AND VERY RESTLESS. NEPHROLOGY ORDERED STAT CT AB/PELVIS AND 1 MG [address]IVAN AT [address]45. [address] DONE AT 0800. UPON ARRIVAL BACK TO ICU DR. SPARROW ELECTIVELY INTUBATED AT BEDSIDE AT 0845 AND GAVE 50 MEQ BICARB. LEVO GTT INCREASED TO 0.5 MCG/KG/MIN AND VASO STARTED AT 0.04. ONE LITER BOLUS OF NS GIVEN AT 0930. D50 AND 10 UNITS OF REGULAR INSULIN GIVEN. GENERAL SURGERY CONSULTED AND AT BEDSIDE. FAMILY CALLED AND CONSENT WAS GIVEN FOR OR (SEE OR REPORT). PATIENT TO OR AT 0945.
[2021-10-01 12:58] LABS: HEMATOCRIT 48.4 % (42.0-52.0); MCH 30.1 pg (26.0-34.0); MCHC 31.5 g/dL (28.0-37.0); MCV 95.5 fL (80.0-100.0); RBC 5.06 mil/uL (4.50-6.00); RDW 19.5 % (10.5-14.5)
[2021-10-01 13:04] LABS: HEMOGLOBIN 15.2 gm/dL (14.0-18.0)
[2021-10-01 13:15] LABS: BE(vivo) -9.4 mmol/L (-2 to +3); HCO3 21.9 mmol/L (22.0-26.0); PO2 99.7 mmHg (80.0-100.0); sO2 94.9 % (92.0-98.0)
[2021-10-01 13:16] LABS: pH 7.104 (7.360-7.450)
[2021-10-01 13:17] LABS: PCO2 71.4 mmHg (35.0-45.0)
[2021-10-01 13:23] LABS: INR 2.2; PROTIME 23.1 Seconds (10.5-12.1)
[2021-10-01 13:24] LABS: CALCIUM 7.6 mg/dL (8.5-10.1); CREATININE 5.3 mg/dL (0.7-1.3)
[2021-10-01 13:39] LABS: ALBUMIN 1.9 g/dL (3.4-5.0); TOTAL BILIRUBIN 1.1 mg/dL (0.2-1.0); TOTAL PROTEIN 4.8 g/dL (6.4-8.2)
[2021-10-01 13:44] LABS: POTASSIUM 5.4 mmol/L (3.5-5.1)
[2021-10-02] VITALS (63 sets, daily range): BP systolic 85–127; BP diastolic 58–74
[2021-10-02 03:56] LABS: BE(vivo) -1.4 mmol/L (-2 to +3); HCO3 25.3 mmol/L (22.0-26.0); PCO2 50.1 mmHg (35.0-45.0); sO2 94.8 % (92.0-98.0)
[2021-10-02 03:57] LABS: pH 7.322 (7.360-7.450)
[2021-10-02 04:55] LABS: HEMATOCRIT 44.3 % (42.0-52.0); HEMOGLOBIN 14.3 gm/dL (14.0-18.0); MCH 30.1 pg (26.0-34.0); MCHC 32.2 g/dL (28.0-37.0); MCV 93.5 fL (80.0-100.0); RBC 4.74 mil/uL (4.50-6.00); RDW 19.2 % (10.5-14.5); WBC 20.7 thou/uL (4.0-11.0)
[2021-10-02 05:24] LABS: INR 1.27; PROTIME 13.7 Seconds (10.5-12.1)
[2021-10-02 05:43] LABS: CALCIUM 8.5 mg/dL (8.5-10.1); POTASSIUM 4.9 mmol/L (3.5-5.1); TOTAL BILIRUBIN 1.3 mg/dL (0.2-1.0); TOTAL PROTEIN 4.6 g/dL (6.4-8.2)
[2021-10-02 05:44] LABS: CREATININE 3.6 mg/dL (0.7-1.3)
--- NOTE | 2021-10-02 08:22 | NUR ---
1999- NOTIFIED DR. HURT ABOUT PTS POOR PERFUSION, BP SUPPORT, BM ON DAY SHIFT, ILEOSTOMY, AND SIMONE OUTPUT. 399- NOTIFIED SLIPPER MAKER TIFFANY THAT PTS LOWER EXTRIMITY PERFUSION WAS POOR WHEN COMING ONTO SHIFT AND GETTING WORSE THROUGHOUT SHIFT. 0700- UPDATED BLU ABOUT PTS NIGHT. HE IS OKAY WITH SIMONE AND ILEOSTOMY OUTPUTS. ALSO UPDATED HIM ON PTS VERY POOR PERIPHERAL VASCULATURE. UPDATED HIM ON PTS LABS.
--- NOTE | 2021-10-02 11:17 | NUR ---
HANNAH AT BEDSIDE PHONE # [phone]
--- NOTE | 2021-10-02 16:08 | NUR ---
SPOKE WITH NICOLÁS (SIGNIFICANT OTHER) AND UPDATED HER.
--- NOTE | 2021-10-02 17:17 | NUR ---
PT PROGRESSING TOWARD PLAN OF CARE AEB DECREASE IN OXYGEN REQUIREMENT AND DECREASE IN LEVOPHED REQUIREMENT
[2021-10-03] VITALS (48 sets, daily range): BP systolic 78–122; BP diastolic 56–72
[2021-10-03 05:26] LABS: INR 1.06; PROTIME 11.5 Seconds (10.5-12.1)
[2021-10-03 05:30] LABS: HEMATOCRIT 41.5 % (42.0-52.0); HEMOGLOBIN 13.3 gm/dL (14.0-18.0); MCH 30.1 pg (26.0-34.0); MCHC 32.1 g/dL (28.0-37.0); MCV 93.9 fL (80.0-100.0); PLATELET COUNT 48 thou/uL (150-400); RBC 4.42 mil/uL (4.50-6.00); RDW 18.8 % (10.5-14.5); WBC 14.2 thou/uL (4.0-11.0)
[2021-10-03 05:35] LABS: BE(vivo) -3.8 mmol/L (-2 to +3); PCO2 48.7 mmHg (35.0-45.0)
[2021-10-03 05:36] LABS: PO2 46.1 mmHg (80.0-100.0); pH 7.293 (7.360-7.450)
[2021-10-03 05:49] LABS: MAGNESIUM 2.3 mg/dL (1.8-2.4); PHOSPHORUS 7.6 mg/dL (2.5-4.9)
--- NOTE | 2021-10-03 06:00 | NUR ---
SPOKE WITH DR. RICHTER D/T CRITICAL ABG VALUE. ORDERS GIVEN AND ADMINISTERED.
[2021-10-03 06:06] LABS: ALBUMIN 1.9 g/dL (3.4-5.0); CALCIUM 9.3 mg/dL (8.5-10.1); CREATININE 4.4 mg/dL (0.7-1.3); POTASSIUM 5.3 mmol/L (3.5-5.1); TOTAL BILIRUBIN 1.1 mg/dL (0.2-1.0); TOTAL PROTEIN 4.5 g/dL (6.4-8.2)
[2021-10-03 09:14] LABS: ABSOLUTE NEUTROPHILS 13.5 thou/uL (1.4-8.2); METAMYELOCYTES 1 %
[2021-10-03 09:15] LABS: ANISOCYTOSIS 2+; OVALOCYTES FEW
--- NOTE | 2021-10-03 17:57 | NUR ---
PT PROGRESSING TOWARD POC AEB DECREASED IN VASOACTIVE MEDICATIONS AND DECREASE IN OXYGEN REQUIREMENT
[2021-10-04] VITALS (23 sets, daily range): BP systolic 85–115; BP diastolic 60–79
[2021-10-04 05:09] LABS: BE(vivo) -7.4 mmol/L (-2 to +3); HCO3 18.4 mmol/L (22.0-26.0); PCO2 38.2 mmHg (35.0-45.0); PO2 110.7 mmHg (80.0-100.0); sO2 97.6 % (92.0-98.0)
[2021-10-04 05:42] LABS: HEMATOCRIT 44.2 % (42.0-52.0); HEMOGLOBIN 14.1 gm/dL (14.0-18.0); MCH 30.1 pg (26.0-34.0); RBC 4.7 mil/uL (4.50-6.00); RDW 19.1 % (10.5-14.5)
[2021-10-04 06:15] LABS: ALBUMIN 1.8 g/dL (3.4-5.0); CALCIUM 9.9 mg/dL (8.5-10.1); CREATININE 5.3 mg/dL (0.7-1.3); MAGNESIUM 2.6 mg/dL (1.8-2.4); PHOSPHORUS 7.8 mg/dL (2.6-4.7); POTASSIUM 5.7 mmol/L (3.5-5.1)
--- NOTE | 2021-10-04 09:21 | NUR ---
Nutrition: Consider concentrate TPN and add lipids (due to minimal propofol) REC 17% dextrose, 7% aa, 2.9% lipids at 60 mL/hr (renal desired goal rate).
--- NOTE | 2021-10-04 11:00 | NUR ---
Discussed during los with the attending physician and during unit rounds. Remains on the vent, 50% FIO2, peep 8. Had a colectomy. The patient is receiving dialysis today. Cm called his significate other moraima, no answer and unable to leave a message related to the mailbox is full. Will cont following as needed.
[2021-10-04 11:02] LABS: HEMATOCRIT 44.4 % (42.0-52.0); HEMOGLOBIN 14.3 gm/dL (14.0-18.0); MCHC 32.3 g/dL (28.0-37.0); MCV 92.8 fL (80.0-100.0); RBC 4.78 mil/uL (4.50-6.00); RDW 19.4 % (10.5-14.5); WBC 16.2 thou/uL (4.0-11.0)
--- NOTE | 2021-10-04 12:23 | EKG ---
[place] [address] [facility] [place] [address] ELECTROCARDIOGRAM REPORT Name: BRICEKLEVERREYNOLDTIMOTEO GRECO Room #: 236-P ADM IN M.R.#: [id number] Admission: 09/29/21 Attend Phys: Nilesh Ojeda Discharge: Date of : 60 Report #: [id number] [facility] Test Date: 2021-10-04 Test Time: 11:23:52 Pat Name: REYNOLD MATAMOROS Department: Room: 236 P Gender: M Home Theater Specialist: JEFFREY : 1960 Requested By: Monica Cain Order Number: [id number] MD: Stu Del Castillo Measurements Intervals [place] Rate: 68 P: 53 [place]: 178 QRS: -75 QRSD: 134 T: 78 QT: 474 QTc: 505 Interpretive Statements Sinus rhythm Nonspecific IVCD with LAD vs Left ventricular hypertrophy Poor R wave progression Compared to ECG 09/28/2021 22:10:52 Left anterior fascicular block no longer present Electronically Signed On 10-04-2021 12:23:05 MECHANICAL ENGINEER by Stu Del Castillo [email or web address] <ELECTRONICALLY SIGNED> By: Stu Del Castillo MD 10/04/21 1223 22 [facility] Stu Del Castillo MD /EPI
[2021-10-04 16:55] LABS: ALBUMIN 1.9 g/dL (3.4-5.0); TOTAL BILIRUBIN 1.8 mg/dL (0.2-1.0); TOTAL PROTEIN 4.5 g/dL (6.4-8.2)
[2021-10-04 17:01] LABS: CREATININE 2.9 mg/dL (0.7-1.3); POTASSIUM 3.8 mmol/L (3.5-5.1)
--- NOTE | 2021-10-04 17:08 | NUR ---
PT IS PROGRESSING TOWARD THE POC EVIDENCED BY DECREASING 02 DEMAND. HE FOLLOWS COMMANDS OPENS HIS EYES TO VERBAL COMMAND AND ON MINIMAL SEDATION FOR VENT MANAGEMENT. THE ABG RESULTS IS METABOLIC ACIDOSIS (PH 7.300) EVIDENCED BY HCO3- 18, THE PT DOES NOT MEED CRITERIA TO HAVE A CPAP TRIAL TODAY. THE PT ORGANS ARE PERFUSING AND BEING OXYGENATED ADEQUATELY VIA THE VENTILATOR AND VASOPRESSIN. HE HAS POOR CIRCULATION SEEN THROUGH MOTTLING IN THE FEET/TOES. HIS EXTREMITIES ARE COOL. LAB RESULTS OF A TROPONIN 1249 AND CARDIOLOGY IS NOTIFIED. NO ORDERS RECEIVED FOR THE TROPONIN RESULT. AN EKG IS COMPLETE THIS AM REPORTING NO ISCHEMIA WITH NO DR ORDERS RECEIVED. PT DID WELL ON HD TX REMOVING 0.5 L OF FLUID.
[2021-10-05] VITALS (25 sets, daily range): BP systolic 81–111; BP diastolic 50–74
[2021-10-05 04:57] LABS: HEMATOCRIT 40.1 % (42.0-52.0); MCH 30.2 pg (26.0-34.0); MCHC 32.5 g/dL (28.0-37.0); MCV 93.1 fL (80.0-100.0); RBC 4.31 mil/uL (4.50-6.00); RDW 18.6 % (10.5-14.5); WBC 9.3 thou/uL (4.0-11.0)
[2021-10-05 05:02] LABS: CALCIUM 9.2 mg/dL (8.5-10.1); CREATININE 3.8 mg/dL (0.7-1.3); MAGNESIUM 2.4 mg/dL (1.8-2.4); PHOSPHORUS 5.6 mg/dL (2.5-4.9); POTASSIUM 4.4 mmol/L (3.5-5.1)
[2021-10-06] VITALS (72 sets, daily range): BP systolic 66–124; BP diastolic 43–80
[2021-10-06 06:14] LABS: HEMATOCRIT 39.1 % (42.0-52.0); HEMOGLOBIN 12.6 gm/dL (14.0-18.0); MCH 30.3 pg (26.0-34.0); MCHC 32.3 g/dL (28.0-37.0); RBC 4.16 mil/uL (4.50-6.00); RDW 19.2 % (10.5-14.5); WBC 8.5 thou/uL (4.0-11.0)
[2021-10-06 06:47] LABS: CREATININE 4.7 mg/dL (0.7-1.3); MAGNESIUM 2.3 mg/dL (1.8-2.4); PHOSPHORUS 5.4 mg/dL (2.5-4.9); POTASSIUM 4.1 mmol/L (3.5-5.1)
[2021-10-06 08:32] LABS: BE(vivo) -3.7 mmol/L (-2 to +3); HCO3 21.8 mmol/L (22.0-26.0); PCO2 41.2 mmHg (35.0-45.0); PO2 73.9 mmHg (80.0-100.0); pH 7.342 (7.360-7.450); sO2 94.1 % (92.0-98.0)
--- NOTE | 2021-10-06 13:23 | NUR ---
pt following commands and noding head yes and no appropriately. rn turned off fentanyl gtt at 0710, RT put pt on cpap mode soon after. pt did well on cpap mode. RT moy abg and levels were normal. RT messaged dr Childers about possible extubation. Dr Childers said it was ok to extubate pt. extubation was at 0845. pt recevied diaylsis today for 3 hours and 500 ml was taken off. RN started levo just for diaylsis per diaylsis nurse request. levo is being titrated down to be turned off now that diaylsis is done. during diaylsis, pt converted into afib. rn messaged erin chau and we started pt on amio gtt. pt brother at bedside currently, rn gave moraima pt girlfriend an update via phone and she stated she will be here to visit later. rn will continue to monitor and follow plan of care.
--- NOTE | 2021-10-06 15:16 | EKG ---
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 : 1960 Requested By: Wolf Childers Order Number: [id number] MD: Gary Kimbrough Measurements Intervals [place] Rate: 144 P: SD: QRS: -58 QRSD: 128 T: 110 QT: 339 QTc: 525 Interpretive Statements Atrial fibrillation Left bundle branch block Compared to ECG 10/04/2021 11:23:52 Left bundle-branch block now present Sinus rhythm no longer present Intraventricular conduction delay no longer present Left ventricular hypertrophy no longer present Poor R-wave progression no longer present Electronically Signed On 10-06-2021 15:15:59 [employer] by Gary Kimbrough [email or web address] <ELECTRONICALLY SIGNED> By: Gary Kimbrough MD, FACC 10/06/21 1515 1216 1216 Gary Kimbrough MD, FAC /EPI
--- NOTE | 2021-10-06 16:04 | NUR ---
rn spoke with dr Retana in regards to pt still on levo. levophed gtt was started for diaylsis per diaylsis nurse. rn attempted to titrate off, but pt blood pressure not tolerating levo being turned completely off. pt on low dose levo. pt on amio gtt as well. hr been in 120s. rn will continue to monitor and follow plan of care
--- NOTE | 2021-10-06 16:49 | NUR ---
PT TUBE FEED ON HOLD DUE TO HIGH RESIDUAL OF 670 ML. PT BECAME NAUSEOUS. MEDICATION GIVEN. PT CONTINUED TO VOMIT. NG HOOKED TO LOW SUCTION THAT PUT OUT 600 MLS. PT NO LONGER NAUSEOUS. STOMACH IS FIRM AND DISTENDED. NO OSTOMY OUTPUT DURING SHIFT. DR HURT IS AWARE. RN WILL CONTINUE TO MONITOR AND FOLLOW POC.
[2021-10-07] VITALS (66 sets, daily range): BP systolic 73–122; BP diastolic 23–81
--- NOTE | 2021-10-07 17:02 | NUR ---
Discussed during los with the attending physician. Patient was able to be extubated yesterday, requiring highflow oxygen. No anticipated discharge over the weekend. Will cont following as needed. When medical stable and able to work with therapy, he might need therapy before returning home.
--- NOTE | 2021-10-07 18:45 | NUR ---
PT TOLERATING FACE SHIELD AND 4L O2 NC. PT IN AFIB, WEAN LEVOPHED TOLERATED.
[2021-10-08] VITALS (142 sets, daily range): BP systolic 56–168; BP diastolic 41–118
[2021-10-08 05:29] LABS: ABSOLUTE NEUTROPHILS 10.6 thou/uL (1.4-8.2); BASOPHILS 0.4 % (0.0-2.0); EOSINOPHILS 0.4 % (0.0-3.0); HEMATOCRIT 46.5 % (42.0-52.0); LYMPHOCYTES 2.7 % (24.0-44.0); MCH 30.6 pg (26.0-34.0); MCHC 32.6 g/dL (28.0-37.0); MONOCYTES 4.5 % (1.0-8.0); PLATELET COUNT 95 thou/uL (150-400); RBC 4.95 mil/uL (4.50-6.00); RDW 19.7 % (10.5-14.5); WBC 11.5 thou/uL (4.0-11.0)
[2021-10-08 05:34] LABS: HEMOGLOBIN 15.1 gm/dL (14.0-18.0)
[2021-10-08 05:37] LABS: CALCIUM 9.8 mg/dL (8.5-10.1); CREATININE 4.7 mg/dL (0.7-1.3); POTASSIUM 4.6 mmol/L (3.5-5.1)
--- NOTE | 2021-10-08 15:33 | NUR ---
Discharge timeframe is uncertain. Pt remains in ICU on o2 per face shield. BP issues today. Pt on TPN but may start trial of po diet. Pt with new ostomy and on dialysis. Will ask for therapy evals to help determine his dc needs as appropriate.
--- NOTE | 2021-10-08 16:32 | NUR ---
DR GRANT AT BEDSIDE, NOTIFIED THAT SIMONE DRAIN TO BULB SUCTION FILLS UP IMMEDIATELY ONCE EMPTIED. SEROSANGUINOUS OUTPUT, OPERATIVE DRESSING IN PLACE. PLAN TO D/C NGT, ADVANCED TO CLEAR LIQUID DIET.
[2021-10-09] VITALS (125 sets, daily range): BP systolic 62–201; BP diastolic 39–158
--- NOTE | 2021-10-09 05:33 | NUR ---
~2100 pt hypertensive and tachycardic after waking up confused from bad dream
[2021-10-09 05:40] LABS: CALCIUM 9.2 mg/dL (8.5-10.1); POTASSIUM 3.9 mmol/L (3.5-5.1)
[2021-10-09 05:43] LABS: CREATININE 3.7 mg/dL (0.7-1.3)
[2021-10-09 05:45] LABS: HEMATOCRIT 42.7 % (42.0-52.0); HEMOGLOBIN 14.3 gm/dL (14.0-18.0); MCH 31.5 pg (26.0-34.0); MCHC 33.4 g/dL (28.0-37.0); MCV 94.3 fL (80.0-100.0); RBC 4.53 mil/uL (4.50-6.00); WBC 10.8 thou/uL (4.0-11.0)
--- NOTE | 2021-10-09 08:12 | NUR ---
PAGED DR. GRANT RE: CLEARANCE TO RESTART PO MEDS PT TOLERATED CLD OVERNIGHT. OK GIVEN, RELAYED INFO TO DR. GALO. PLAN TO TRANSITION AMIO GTT TO PO AMIO, START MIDODRINE FOR BP SUPPORT, RESTART PT HOME MED EFFIENT. SIMONE DRAIN OUTPUT >500 WITH EACH EMPTYING, DR GRANT REQ SUPPLIES TO D/C SIMONE DRAIN TODAY.
[2021-10-10] VITALS (73 sets, daily range): BP systolic 62–129; BP diastolic 38–89
--- NOTE | 2021-10-10 06:15 | NUR ---
Dobutamine titrated off. CI = 2.4
--- NOTE | 2021-10-10 06:36 | NUR ---
PT BEEN RESTING IN NO ACUTE DISTRESS.A/OX3.PT AWAKE MOST OF THE NIGHT,CALLS FREQUENTLY WITH MUTIPLE NEEDS.REPOSTIONED IN BED MUTIPLE TIMES THROUGH THE NIGHT.PT TACHYCARDIAC MOST OF THE NIGHT,REMAINS ON AMIODARONE DRIP.UNABLE TO TITRATE OFF LEVOPHED BELOW 0.07MCG/MIN D/T PT BEING TOO HYPOTENSIVE WITH MAP OF <6.MID ABD INCISION INTACT,WELL APPROXIMATED.DRESSING TO LEFT SIDE J-P DRAIN SITE CHANGED TWICE THIS SHIFT D/T BEING SATURATED WITH DRAINAGE.TOLERATED.PT REQUESTED TO HAVE PRAFO BOOTS OFF THIS AM,BLES ELEVATED WITH PILLOW.O2 AT 4-6LITERS AT NOC,PT WITH EPISODES OF O2 DESATURATIONS THROUGH THE NOC REQUIRING MORE O2,COUGH UPS THICK WHITE SPUTUM,ENCOURAGED WITH IS.PT PROGESSING FAIRLY TO DISCHARGE GOALS.
[2021-10-10 08:13] LABS: HEMATOCRIT 48.6 % (42.0-52.0); HEMOGLOBIN 15.7 gm/dL (14.0-18.0); MCH 30.5 pg (26.0-34.0); MCHC 32.3 g/dL (28.0-37.0); MCV 94.5 fL (80.0-100.0); RBC 5.14 mil/uL (4.50-6.00); RDW 21.8 % (10.5-14.5); WBC 14.7 thou/uL (4.0-11.0)
[2021-10-10 08:21] LABS: CALCIUM 9.5 mg/dL (8.5-10.1); CREATININE 4.4 mg/dL (0.7-1.3); POTASSIUM 4.2 mmol/L (3.5-5.1)
--- NOTE | 2021-10-10 09:42 | NUR ---
DR. WILEY (NEPHROLOGY) AT BEDSIDE, REQUESTING TO D/C LEVOPHED GTT FOR PATIENT. NOTIFIED DR. REHMAN (PULM/CC), ASKED FOR PARAMETERS TO BE SET FOR BP IF DISCONTINUING PRESSORS. DR. WILEY STATES " LONG HE IS AWAKE AND PERFUSING, NO BP PARAMETERS TO BE SET." NEPHROLOGY INCREASING MIDODRINE DOSING TO 4X DAILY.
--- NOTE | 2021-10-10 10:05 | NUR ---
DR. KINNEY NOTIFIED OF SODIUM 130 ON LAB DRAW 10/10/21. NO NEW ORDERS.
--- NOTE | 2021-10-10 12:01 | NUR ---
PT BLOOD PRESSURE DROPPING TO 64/38 MAP 47, CONTACTED DR. KINNEY, VASOPRESSIN ORDERED. STARTED GTT, CONTACTED HOSPITALIST DR. GALO TO NOTIFY.
--- NOTE | 2021-10-10 12:10 | NUR ---
PAGED DR. GUARDADO RE: D/C AMIODARONE GTT DISCUSSED 10/09/21 AND TRANSITIONING TO PO AMIODARONE FOR PERSISTENT AFIB.
--- NOTE | 2021-10-10 12:12 | NUR ---
PAGED DR. GRANT: RE ADVANCING DIET, CHANGE OF VASOPRESSORS, MINIMAL OUTPUT FROM ILEOSTOMY AND WEEPING FROM D/C'ED SIMONE DRAIN SITE.
--- NOTE | 2021-10-10 15:23 | NUR ---
CALLED DR. KINNEY @1145 AM, PATIENT BP LOW. ORDERS TO START VASOPRESSIN. BP IMPROVING.
--- NOTE | 2021-10-10 17:25 | NUR ---
PT RESTING COMFORTABLY TODAY, VERY SLEEPY. NOC SHIFT RN REPORTED PT DID NOT SLEEP MUCH AT ALL LAST NIGHT, ~2 HRS. MULTIPLE NEEDS TODAY, FACE SHAVED, HAIR WASHED, TOTAL LINEN CHANGE. PT EAGER TO ADVANCE DIET, PER SURGERY, MAINTAIN CLD UNTIL ILEOSTOMY IS PRODUCING OUTPUT. COPIOUS DRAINAGE FROM OLD LLQ SIMONE DRAIN SITE, MULTIPLE ABD DRESSING CHANGES. RENAL CONCERNED FOR PERFUSION OF LOWER EXT, ORDERED LEVOPHED D/C, BP RUNNING LOW, VASOPRESSIN STARTED, INTERMITTENTLY ON/OFF TO MAINTAIN SYS 70-80s PER RENAL. TRANSITIONED FROM AMIO GTT TO PO AMIO, INCREASED MIDODRINE DOSING TO QID. CONTINUING NASAL CANNULA 4L.
[2021-10-11] VITALS (108 sets, daily range): BP systolic 73–122; BP diastolic 41–79
--- NOTE | 2021-10-11 11:51 | NUR ---
Discussed during unit rounds with Pulmonary MD and during los with the attending physician. Dialysis today, speech eval, chest x-ray, and breathing treatments ordered. Patient cont. to require 10LPM oxygen. Status post colectomy, ileostomy. therapy to eval after patient is off of pressure for low b/p. CM called sig other moraima, no answer and unable to leave a message related to mailbox is full. Called his sister, number not in service. Will cont. following as needed.
--- NOTE | 2021-10-11 16:06 | PATH ---
[facility] [place] [address] PATHOLOGY RPT PROCEDURE Name: REYNOLD MATAMOROSO Room #: 236-P ADM IN M.R.#: [id number] Admission: 09/29/21 Date of : 60 Discharge: Report #: [id number] Path Case #: [id number] [facility] Accession Number: [id number] . 01 Material submitted: . PART A: colon - TOTAL COLON PART B: hernia - UMBILICAL HERNIA SAC . 02 Diagnosis: A. Total colectomy, with terminal ileum: - Pseudomembranous pancolitis, with acute serositis, consistent with clinical history Clostridium difficile infection. . Lymph nodes, 4, mesenteric: - Reactive lymphoid hyperplasia. . B. Soft tissue "umbilical hernia sac", excision: - Mesothelial-lined fibroadipose tissue with chronic inflammation; negative for malignancy. (MLK/db; 10/08/2021) LBQ 10/08/2021 1640 Local . 02 Electronically signed: . Deepa Rodgers MD, Pathologist NPI- [id number] . 01 Gross description: . A. The specimen is received in formalin, labeled "Reynold Matamoros, total colon". Received is an anatomically oriented, total colectomy specimen, measuring 107.5 cm in overall length. The specimen is comprised of 20.1 cm of terminal ileum (6.0 cm in open circumference), 87.4 cm of colon (7.2-15.5 cm in open circumference), a minimal amount of attached mesentery (extending up to 4.0 cm from the serosa), and 2 stapled margins. An appendix is not grossly identified. The colonic serosa appears lincoln-vazquez, dusky, smooth and glistening. The terminal ileum serosa appears lincoln-pink, smooth and glistening. Opening reveals yellow-green, friable, partially gelatinous, and adherent plaque covering the entire mucosal surface. The distal end of the specimen displays a 23.5 cm long diffusely nodular mucosal segment. The nodules are submucosal, ovoid, indurated and range in size from range in size from approximately 0.3-1.0 cm, and are located adjacent to the distal margin. No additional discrete masses, lesions or perforations are grossly identifiable. Sectioning reveals a colonic wall thickness ranging from 0.3-1.2 cm, with the wall thickness increasing at the distal end. Dissection of the adipose tissue yields 4 candidate lymph nodes, ranging in size from 0.6-0.9 cm, in greatest dimension. Photographs are taken and sections are submitted as follows: . [address] [address] PATHOLOGY RPT PROCEDURE Name: REYNOLD MATAMOROS Room #: 236-P ADM IN M.R.#: [id number] Admission: 09/29/21 Date of : 60 Discharge: Report #: [id number] Path Case #: [id number] A1: Proximal margin, en face, entirely A2-A3: Distal margin, en face, entirely A4: Nodular colonic bowel to include distal margin (distal margin inked black), perpendicular A5-A8: Nodular colonic distal segment, represented A9: Distal mesenteric margin, adjacent to nodular colonic segment, represented A10-A13: Financial Services Associate sections of colon, from distal to proximal, sequentially A14-A15: Terminal ileum, represented A16: Cecal valve, represented A17: 3 whole candidate lymph nodes A18: 1 whole candidate lymph node, bisected . B. The specimen is received in formalin, labeled "Reynold Matamoros, umbilical hernia sac". Received is an unoriented, saccular shaped, lincoln-pink to vazquez, membranous piece of tissue, measuring 5.0 x 3.2 x 0.8 cm. One aspect of the specimen is wrinkled and glistening, and the opposite aspect is fibrofatty, and shaggy. Financial Services Associate sections are submitted in cassette B1. ([facility]; 10/04/2021) [facility] 10/04/2021 1307 Local . 02 Pathologist provided ICD-10: K51.018, R59.1, M79.9 . 02 CPT . 253607, 392887 Specimen Comment: A courtesy copy of this report has been sent to [phone] Specimen Comment: Report sent to Specimen Comment: A duplicate report has been generated due to demographic updates. Performed at: 01 [facility] [address] [facility] [address], [place] [id number] MD Lion Rivero MD Phone: [phone] Performed at: 02 [facility] [address] [id number] MD Porfirio Roberts MD Phone: [phone]
--- NOTE | 2021-10-11 18:30 | NUR ---
THIS PT IS PROGRESSING TOWARD THE POC EVIDENCED BY DECREASING DEMAND FOR PRESSOR SUPPORT TO MAINTAIN PERFUSION/MAP > 60. HOWEVER, HE CANNOT SWALLOW ADEQUATELY TO MAINTAIN PROPER NUTRITION. TODAY THIS RN ADMINISTERED 25G OF D5 TO TREAT HYPOGLYCEMIA. THIS PT HAS BEEN LETHARGIC MOST OF THE DAY BUT WAKES UP ON COMMAND.
[2021-10-12] VITALS (79 sets, daily range): BP systolic 69–117; BP diastolic 34–80
[2021-10-12 05:06] LABS: HEMATOCRIT 39.8 % (42.0-52.0); MCH 30.3 pg (26.0-34.0); MCHC 31.8 g/dL (28.0-37.0); MCV 95.2 fL (80.0-100.0); RBC 4.18 mil/uL (4.50-6.00); RDW 23.1 % (10.5-14.5)
[2021-10-12 05:07] LABS: HEMOGLOBIN 12.7 gm/dL (14.0-18.0)
[2021-10-12 05:10] LABS: CALCIUM 9.7 mg/dL (8.5-10.1); CREATININE 3.5 mg/dL (0.7-1.3); POTASSIUM 4.1 mmol/L (3.5-5.1)
[2021-10-13] VITALS (108 sets, daily range): BP systolic 70–134; BP diastolic 34–101
[2021-10-13 04:28] LABS: HEMATOCRIT 42.5 % (42.0-52.0); HEMOGLOBIN 13.9 gm/dL (14.0-18.0); MCH 30.9 pg (26.0-34.0); MCHC 32.8 g/dL (28.0-37.0); MCV 94.3 fL (80.0-100.0); RBC 4.51 mil/uL (4.50-6.00); RDW 23.8 % (10.5-14.5); WBC 8.6 thou/uL (4.0-11.0)
[2021-10-13 04:32] LABS: CALCIUM 9.6 mg/dL (8.5-10.1); CREATININE 4.4 mg/dL (0.7-1.3); POTASSIUM 4.5 mmol/L (3.5-5.1)
--- NOTE | 2021-10-13 06:44 | NUR ---
PT NOT PROGRESSING TOWARDS GOALS OVERNIGHT. EXCESSIVE SEROUS DRAINAGE FROM PREVIOUS LLQ SIMONE DRAIN SITE. SATURATED BED AND FLUID POOLING UNDERNERATH PATIENT. PAGED DR HURT TO INFORM OF NEW FINING. PAGE NOT RETURNED. VSS. LABS WNL. WILL CONTINUE TO MONITOR.
[2021-10-14] VITALS (55 sets, daily range): BP systolic 65–111; BP diastolic 40–78
--- NOTE | 2021-10-14 06:46 | NUR ---
DR GRAY AT BEDSIDE THIS MORNING. WANTS TO TRY TO GET PATIENT OFF VASO TODAY. NO NEW ORDERS GIVEN. WILL CONTINUE TO MONITOR
[2021-10-14 13:31] LABS: BE(vivo) -1.9 mmol/L (-2 to +3); HCO3 22.1 mmol/L (22.0-26.0); PCO2 35.6 mmHg (35.0-45.0); PO2 71.7 mmHg (80.0-100.0); pH 7.411 (7.360-7.450); sO2 94.7 % (92.0-98.0)
[2021-10-14 13:38] LABS: HEMATOCRIT 38.8 % (42.0-52.0); HEMOGLOBIN 12.7 gm/dL (14.0-18.0); MCH 31.2 pg (26.0-34.0); MCHC 32.7 g/dL (28.0-37.0); MCV 95.7 fL (80.0-100.0); RBC 4.05 mil/uL (4.50-6.00); RDW 24.8 % (10.5-14.5)
[2021-10-14 13:48] LABS: CALCIUM 9.8 mg/dL (8.5-10.1); POTASSIUM 4.1 mmol/L (3.5-5.1)
[2021-10-14 13:49] LABS: CREATININE 3.3 mg/dL (0.7-1.3)
--- NOTE | 2021-10-14 23:12 | NUR ---
ASSUMED CARE OF PT AT 1900. PT EXPRESSED WANTING TO WITHDRAW CARE AND SPEAK TO POWER BARKER OPERATOR. SPOKE WITH NICOLÁS, SIGNIFICANT OTHER. FAMILY AND PATIENT WILL DISCUSS FURTHER IN THE MORNING.
[2021-10-15] VITALS (121 sets, daily range): BP systolic 77–114; BP diastolic 53–82
[2021-10-15 04:31] LABS: HEMATOCRIT 41.1 % (42.0-52.0); HEMOGLOBIN 13.4 gm/dL (14.0-18.0); MCHC 32.7 g/dL (28.0-37.0); RBC 4.33 mil/uL (4.50-6.00); RDW 23.8 % (10.5-14.5); WBC 8.3 thou/uL (4.0-11.0)
[2021-10-15 04:36] LABS: CREATININE 3.8 mg/dL (0.7-1.3)
[2021-10-15 04:48] LABS: POTASSIUM 4.5 mmol/L (3.5-5.1)
--- NOTE | 2021-10-15 11:05 | NUR ---
Report passed on from the bedside nurse that MD going to discuss with Douglas and family on goals of care. Discussed during los with the attending physician. Having dialysis today. getting a chest xray. Starting TPN. Cm visited with and son via phone call. We will be up there today and he sounded much clearer and we still want treatment per moraima and son Lazaro. No anticipated weekend dc. Will cont. following as needed.
--- NOTE | 2021-10-15 15:43 | NUR ---
PT AGITATED AMD UPSET. PT REFUSED A DIET AND STATE SHE JUST WANT TO GO HOME. PT SCREAMING SHE JUST CAME FOR A STRESS TEST AND WANT TO GO HOME. PT REFUSED TO BE ESCORTED AND WAS AGITATED UPON DISCHARGE. IV REMOVED BY CHARGE NURSE STEPHANIE. PT CLEARED BY CARDIOLOGY TO GO HOME. MD LACEY DISCHARGED PT PENDING CARDIOLOGY CLEARANCE.
[2021-10-16] VITALS (46 sets, daily range): BP systolic 84–108; BP diastolic 48–83
[2021-10-16 04:40] LABS: BE(vivo) -0.8 mmol/L (-2 to +3); HCO3 23.9 mmol/L (22.0-26.0); PCO2 39.5 mmHg (35.0-45.0); PO2 71.8 mmHg (80.0-100.0); pH 7.399 (7.360-7.450); sO2 94.5 % (92.0-98.0)
[2021-10-16 04:45] LABS: ABSOLUTE NEUTROPHILS 6.8 thou/uL (1.4-8.2); BASOPHILS 1.2 % (0.0-2.0); EOSINOPHILS 0.2 % (0.0-3.0); HEMATOCRIT 39.3 % (42.0-52.0); HEMOGLOBIN 12.6 gm/dL (14.0-18.0); LYMPHOCYTES 5.5 % (24.0-44.0); MCH 31.1 pg (26.0-34.0); MCHC 32.1 g/dL (28.0-37.0); MCV 96.6 fL (80.0-100.0); MONOCYTES 6.9 % (1.0-8.0); PLATELET COUNT 76 thou/uL (150-400); POLYS 86.2 % (36.0-66.0); RBC 4.07 mil/uL (4.50-6.00); RDW 24.7 % (10.5-14.5); WBC 7.9 thou/uL (4.0-11.0)
[2021-10-16 04:49] LABS: ALBUMIN 2.6 g/dL (3.4-5.0); CALCIUM 9.6 mg/dL (8.5-10.1); PHOSPHORUS 4.5 mg/dL (2.6-4.7); POTASSIUM 4.1 mmol/L (3.5-5.1)
[2021-10-16 05:10] LABS: CREATININE 2.6 mg/dL (0.7-1.3); TOTAL BILIRUBIN 6.3 mg/dL (0.2-1.0)
--- NOTE | 2021-10-16 09:47 | EKG ---
[address] [place] [address] ELECTROCARDIOGRAM REPORT Name: REYNOLD MATAMOROS Room #: 236-P ADM IN M.R.#: [id number] Admission: 09/29/21 Attend Phys: Nilesh Ojeda Discharge: Date of : 60 Report #: [id number] 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
--- NOTE | 2021-10-16 16:23 | NUR ---
TUBE FEEDING STARTED AT THIS TIME VIA SANJU SMITHRO AT RATE OF 10ML/HR STARTED PER DR. RICHTER. PT C/O OF NO ABD PAIN. WILL CONTINUE TO REASSESS PT TOLERENCE FOR FEEDING.
--- NOTE | 2021-10-16 22:35 | NUR ---
PT WAS C/O OF N/V. THIS NURSE WAS IN WITH THE PT APPROX OVER AN HOUR HELPING HIM GET CLEANED UP AND ENSURE HE WAS TAKEN CARE OF. DURING THAT PERIOD THE PT WAS MAKING VERY INAPPROPRIATE AND DEROGATORY COMMENTS REGARDING NURSES. I EXPLAINED TO THE PT THAT COMMENTS LIKE THAT WOULD NOT BE TOLLERATED. PT IS NOW YELLING OUT CAUSING A COMMOTION INSINUATING HE IS NOT GETTING GOOD CARE.
[2021-10-17] VITALS (47 sets, daily range): BP systolic 87–119; BP diastolic 63–92
[2021-10-17 04:24] LABS: ALBUMIN 2.3 g/dL (3.4-5.0); CALCIUM 9.7 mg/dL (8.5-10.1); CREATININE 3.4 mg/dL (0.7-1.3); PHOSPHORUS 4.2 mg/dL (2.6-4.7); POTASSIUM 3.6 mmol/L (3.5-5.1); TOTAL PROTEIN 5.1 g/dL (6.4-8.2)
--- NOTE | 2021-10-17 09:47 | NUR ---
AT 0935 PT PULSE OXYGENATION MONITOR STARTED ALARMING PT DESATURATED TO 84%, INCREASED PT NASAL CANNULA FROM 4LPM TO 6LPM WITH NO IMPROVEMENT. CHANGED OUT PT PULSE OXYGEN PROBE WHICH READ IN THE RANGE OF 84-85%, PT LUNGS COARSE BILATERALLY, EQUAL RISE AND FALL, PT C/O OF NO SHORTNESS OF BREATH. PLACED PT ON 15LPM NRB MASK AND OXYGENATION INCREASED TO 100%, RT NOTIFIED OF EVENTS. WILL CONTINUE TO MONITOR AND REASSESS.
[2021-10-18] VITALS (72 sets, daily range): BP systolic 75–112; BP diastolic 55–85
[2021-10-18 04:54] LABS: ALBUMIN 2.2 g/dL (3.4-5.0); CALCIUM 9.7 mg/dL (8.5-10.1); CREATININE 3.8 mg/dL (0.7-1.3); PHOSPHORUS 4.5 mg/dL (2.5-4.9); POTASSIUM 3.6 mmol/L (3.5-5.1); TOTAL PROTEIN 5.2 g/dL (6.4-8.2)
[2021-10-18 05:05] LABS: TOTAL BILIRUBIN 6.5 mg/dL (0.2-1.0)
== END 2021-10-19 | disposition hospice, home (50) | DRG 853 ==
LOC: ER 21:36 → EROBS 09-29 00:31 → ICU 09-29 00:31 → 4W 09-30 08:07 → 2N 09-30 09:39 → ICU 09-30 17:32
PROVIDERS: Emergency Medicine; Hospitalist; Internal Medicine Nephrology; Internal Medicine Pulmonary Disease; Nurse Practitioner Family; Pediatrics; Surgery; ADMIT Hospitalist; ATTEND Hospitalist
PROC: 5A1D70Z Performance of Urinary Filtration, Intermittent, Less than 6 Hours Per Day (ICD-10-PCS; principal; 2021-10-01)
PROC: 0WQF0ZZ Repair Abdominal Wall, Open Approach (ICD-10-PCS; principal; 2021-10-01)
PROC: 0DTL0ZZ Resection of Transverse Colon, Open Approach (ICD-10-PCS; principal; 2021-10-01)
PROC: 5A1955Z Respiratory Ventilation, Greater than 96 Consecutive Hours (ICD-10-PCS; principal; 2021-10-01)
PROC: 0D1B0Z4 Bypass Ileum to Cutaneous, Open Approach (ICD-10-PCS; principal; 2021-10-01)
PROC: 5A0935A Assistance with Respiratory Ventilation, Less than 24 Consecutive Hours, High Flow/Velocity Cannula (ICD-10-PCS; 2021-10-06)
PROC: 5A1D70Z Performance of Urinary Filtration, Intermittent, Less than 6 Hours Per Day (ICD-10-PCS; 2021-10-06)
PROC: 5A1D70Z Performance of Urinary Filtration, Intermittent, Less than 6 Hours Per Day (ICD-10-PCS; 2021-10-08)
PROC: 5A0935A Assistance with Respiratory Ventilation, Less than 24 Consecutive Hours, High Flow/Velocity Cannula (ICD-10-PCS; 2021-10-09)
PROC: 5A0935A Assistance with Respiratory Ventilation, Less than 24 Consecutive Hours, High Flow/Velocity Cannula (ICD-10-PCS; 2021-10-11)
PROC: 5A1D70Z Performance of Urinary Filtration, Intermittent, Less than 6 Hours Per Day (ICD-10-PCS; 2021-10-11)
PROC: 5A0935A Assistance with Respiratory Ventilation, Less than 24 Consecutive Hours, High Flow/Velocity Cannula (ICD-10-PCS; 2021-10-12)
PROC: 5A1D70Z Performance of Urinary Filtration, Intermittent, Less than 6 Hours Per Day (ICD-10-PCS; 2021-10-15)
PROC: 5A1D70Z Performance of Urinary Filtration, Intermittent, Less than 6 Hours Per Day (ICD-10-PCS; 2021-10-18)
DX: A41.9 Sepsis, unspecified organism (principal); N18.6 End stage renal disease; R65.21 Severe sepsis with septic shock; K55.059 Acute (reversible) ischemia of intestine, part and extent unspecified; J18.9 Pneumonia, unspecified organism; J96.01 Acute respiratory failure with hypoxia; E43 Unspecified severe protein-calorie malnutrition; G92.8 Other toxic encephalopathy; A04.72 Enterocolitis due to Clostridium difficile, not specified as recurrent; I13.2 Hypertensive heart and chronic kidney disease with heart failure and with stage 5 chronic kidney disease, or end stage renal disease; I42.9 Cardiomyopathy, unspecified; R18.8 Other ascites; I50.22 Chronic systolic (congestive) heart failure; Q61.3 Polycystic kidney, unspecified; Z68.1 Body mass index [BMI] 19.9 or less, adult; I48.19 Other persistent atrial fibrillation; I48.92 Unspecified atrial flutter; I48.0 Paroxysmal atrial fibrillation; F17.210 Nicotine dependence, cigarettes, uncomplicated; D63.8 Anemia in other chronic diseases classified elsewhere; I95.9 Hypotension, unspecified; E16.2 Hypoglycemia, unspecified; F41.9 Anxiety disorder, unspecified; R53.81 Other malaise; Z20.822 Contact with and (suspected) exposure to COVID-19; M89.9 Disorder of bone, unspecified; I73.9 Peripheral vascular disease, unspecified; D69.6 Thrombocytopenia, unspecified; D64.9 Anemia, unspecified; I25.10 Atherosclerotic heart disease of native coronary artery without angina pectoris; Z66 Do not resuscitate; Z90.49 Acquired absence of other specified parts of digestive tract; Z84.1 Family history of disorders of kidney and ureter; Z86.16 Personal history of COVID-19; Z71.6 Tobacco abuse counseling
CPT/HCPCS: 10078; 32100; 50093; 50101; 50290; 50411; 50555; 51412; 51712; 52265; 52287; 53307; 53310; 56525; 56529; 57103; 58574; 58637; 58710; 62110; 62900; 65020; 65090